=== PATIENT | female | born 1975 | race Caucasian/White ===

== ENCOUNTER 2018-09-08 08:27 | Inpatient (IN) | payer OTHER ==
[2018-09-08] MEDS ORDERED: LIDOCAINE 2% (SDV) 5 ML INJ (09:29)
[2018-09-08] MEDS ORDERED: CEFAZOLIN 1 GM INJ (09:29)
[2018-09-08] MEDS ORDERED: FENTAnyl 50 MCG/ML VIAL ×2 (09:30→11:06)
[2018-09-08] MEDS ORDERED: OXYCODONE/ACETAMINOPHEN (5/325) TAB PO ×2 (09:30)
[2018-09-08] MEDS ORDERED: FAMOTIDINE 20 MG INJ (09:30)
[2018-09-08] MEDS ORDERED: ONDANSETRON 4 MG INJ IV ×2 (09:30→13:30)
[2018-09-08] MEDS ORDERED: PROCHLORPERAZINE 10 MG INJ IV (09:30)
[2018-09-08] MEDS ORDERED: HYDROmorphONE 1 MG/5 ML IV SYRINGE IV ×3 (09:30)
[2018-09-08] MEDS ORDERED: MIDAZOLAM 1 MG/ML 2 ML INJ (09:30)
[2018-09-08] MEDS ORDERED: MEPERIDINE 25 MG INJ IV (09:30)
[2018-09-08] MEDS ORDERED: METOCLOPRAMIDE 10 MG INJ (09:31)
[2018-09-08] MEDS ORDERED: ONDANSETRON 4 MG INJ (09:31)
[2018-09-08] MEDS ORDERED: DEXAMETHASONE 4 MG/ML 5 ML INJ (09:31)
[2018-09-08] MEDS ORDERED: SCOPOLAMINE 1.5 MG PATCH (09:31)
[2018-09-08] MEDS ORDERED: DIPHENHYDRAMINE 50 MG INJ (11:00)
[2018-09-08] MEDS ORDERED: PHENYLephrine (100 MCG/ML) 5ML SYG (11:14)
[2018-09-08] MEDS ORDERED: morphine 2 MG INJ IV (13:30)
[2018-09-08] MEDS: ACETAMINOPHEN 1000MG/100ML IV 100 ML IVPB ×2 (14:05→21:07)
[2018-09-08] MEDS: D5W-0.45 NACL + KCL 20 MEQ 1,000 ML IV ×2 (14:06→22:16)
[2018-09-09] MEDS: D5W-0.45 NACL + KCL 20 MEQ 1,000 ML IV ×3 (06:05→21:16)
[2018-09-09] MEDS ORDERED: HYDROCODONE/APAP (5/325) TAB NGT (10:30)
[2018-09-09 10:48] LABS: ADD MAN DIFF? NO
[2018-09-09 10:51] LABS: BASOPHILS % 0.3 % (0.0-2.0); EOSINOPHILS % 0.2 % (0.0-7.0); HEMATOCRIT 25.8 % (37.0-47.0); HEMOGLOBIN 7.9 g/dl (12.0-16.0); LYMPHOCYTES # 1.9 10^3/ul (0.8-2.9); LYMPHOCYTES % 20.2 % (15.0-51.0); MEAN CORPUSCULAR HEMOGLOBIN 24.4 pg (29.0-33.0); MEAN CORPUSCULAR HGB CONC 30.6 g/dl (32.0-37.0); MEAN CORPUSCULAR VOLUME 79.6 fl (82.0-101.0); MONOCYTE # 0.7 10^3/ul (0.3-0.9); MONOCYTES % 7.9 % (0.0-11.0); NEUTROPHIL # 6.6 10^3/ul (1.6-7.5); NEUTROPHILS % 70.9 % (39.0-77.0); PLATELET COUNT 264 10^3/UL (140-415); RED BLOOD COUNT 3.24 10^6/ul (4.20-5.40); RED CELL DISTRIBUTION WIDTH 15.9 % (11.5-14.5)
[2018-09-09 10:51] LABS: WHITE BLOOD COUNT 9.4 10^3/ul (4.8-10.8)
[2018-09-09 13:22] LABS: ANION GAP 7 (5-13); BLOOD UREA NITROGEN 4 mg/dl (7-20); CALCIUM 8.8 mg/dl (8.4-10.2); CARBON DIOXIDE 26 mmol/L (21-31); CHLORIDE 108 mmol/L (97-110); Estimated GFR > 60 mL/min (>60); GLUCOSE 90 mg/dl (70-220); POTASSIUM 3.8 mmol/L (3.5-5.1); SODIUM 141 mmol/L (135-144)
[2018-09-09] MEDS ORDERED: SOD CHLORIDE 0.9% 250 ML IV* (14:00)
[2018-09-09 20:16] LABS: IMMEDIATE SPIN CROSSMATCH 1 1
== END 2018-09-10 00:10 | disposition home or self-care (01) | DRG 581 ==
LOC: SDS 08:27 → REC 13:26 → MS1 13:55
PROVIDERS: Surgery Surgical Oncology
PROC: 0HBT0ZZ Excision of Right Breast, Open Approach (ICD-10-PCS; principal; 2018-09-08 10:30)
PROC: 07B50ZX Excision of Right Axillary Lymphatic, Open Approach, Diagnostic (ICD-10-PCS; 2018-09-08 10:30)
PROC: 30233N1 Transfusion of Nonautologous Red Blood Cells into Peripheral Vein, Percutaneous Approach (ICD-10-PCS; 2018-09-08 10:32)
DX: C50.911 Malignant neoplasm of unspecified site of right female breast (principal); Z90.11 Acquired absence of right breast and nipple; D50.0 Iron deficiency anemia secondary to blood loss (chronic)
CPT/HCPCS: 36430; 80048; 84703; 85025; 86850; 86900; 86901; 86920; 88307

== ENCOUNTER 2019-03-22 08:17 | Day surgery (SDC) | payer OTHER ==
[2019-03-22] MEDS: SOD CHLORIDE 0.9% 1,000 ML IV (09:02)
[2019-03-22] MEDS ORDERED: GLYCOPYRROLATE 0.4 MG INJ (09:21)
[2019-03-22] MEDS ORDERED: CEFAZOLIN 1 GM INJ (09:21)
[2019-03-22] MEDS ORDERED: FENTAnyl 50 MCG/ML VIAL (09:21)
[2019-03-22] MEDS ORDERED: MIDAZOLAM 1 MG/ML 2 ML INJ (09:21)
[2019-03-22] MEDS ORDERED: NEOSTIGMINE 3 MG/3 ML SYRINGE (09:21)
[2019-03-22] MEDS ORDERED: LIDOCAINE 2% (SDV) 5 ML INJ (09:21)
[2019-03-22] MEDS ORDERED: PROPOFOL 20 ML (09:21)
[2019-03-22] MEDS ORDERED: POLYMYXIN/BACITRACIN 1L IRRIG (10:17)
[2019-03-22] MEDS ORDERED: ONDANSETRON 4 MG INJ (10:23)
[2019-03-22] MEDS ORDERED: DEXAMETHASONE 4 MG/ML 5 ML INJ (10:23)
[2019-03-22] MEDS: BUPIVACAINE 0.25% (MPF) 10 ML 10 ML VIAL INJ (10:43)
[2019-03-22] MEDS: BUPIVACAINE LIPOSOME/PF 266 MG/20 ML VIAL INFIL (10:55)
[2019-03-22] MEDS ORDERED: HYDROmorphONE 1 MG/5 ML IV SYRINGE IV ×3 (11:00)
[2019-03-22] MEDS ORDERED: FENTAnyl 50 MCG/ML VIAL IV ×2 (11:00)
[2019-03-22] MEDS ORDERED: ALBUTEROL 0.083% (NEB) 2.5 MG/3 ML AMP HHN (11:00)
[2019-03-22] MEDS ORDERED: MIDAZOLAM 1 MG/ML 2 ML INJ IV (11:00)
[2019-03-22] MEDS ORDERED: EPHEDrine 25 MG/5 ML SYG IV (11:00)
[2019-03-22] MEDS ORDERED: hydrALAzine 20 MG INJ IV (11:00)
[2019-03-22] MEDS ORDERED: OXYCODONE/ACETAMINOPHEN (5/325) TAB PO ×2 (11:00)
[2019-03-22] MEDS ORDERED: TRIMETHOBENZAMIDE 100 MG/ML VIAL IM (11:00)
[2019-03-22] MEDS ORDERED: LABETALOL HCL 20MG INJ IV (11:00)
[2019-03-22] MEDS ORDERED: IPRATROPIUM (NEB) 0.5 MG/2.5 ML AMP HHN (11:00)
[2019-03-22] MEDS ORDERED: DIPHENHYDRAMINE 50 MG INJ IV (11:00)
[2019-03-22] MEDS ORDERED: ONDANSETRON 4 MG INJ IV (12:00)
[2019-03-22] MEDS ORDERED: HYDROCODONE/APAP (5/325) TAB PO (12:00)
[2019-03-22] MEDS ORDERED: ACETAMINOPHEN 325 MG TAB PO (12:00)
[2019-03-22] MEDS ORDERED: morphine 2 MG INJ IV (12:00)
[2019-03-22] MEDS: ONDANSETRON 4 MG INJ IV (12:02)
[2019-03-22] MEDS: FENTAnyl 50 MCG/ML VIAL IV ×2 (12:02→12:23)
[2019-03-22] MEDS: MEPERIDINE 25 MG INJ IV (12:18)
[2019-03-22] MEDS: LACTATED RINGER'S 1,000 ML IV (12:19)
== END 2019-03-22 19:00 | disposition home or self-care (01) ==
LOC: SDS 08:17
DX: Z90.11 Acquired absence of right breast and nipple (principal); Z85.3 Personal history of malignant neoplasm of breast
CPT/HCPCS: 19357; 84703

== ENCOUNTER 2019-03-30 11:34 | Emergency (ER) | payer OTHER ==
[2019-03-30 12:43] LABS: ADD MAN DIFF? NO
[2019-03-30 12:44] LABS: BASOPHILS % 0.5 % (0.0-2.0); EOSINOPHILS # 0.4 10^3/ul (0.0-0.5); EOSINOPHILS % 4.3 % (0.0-7.0); HEMOGLOBIN 11.2 g/dl (12.0-16.0); LYMPHOCYTES # 1.6 10^3/ul (0.8-2.9); LYMPHOCYTES % 19.1 % (15.0-51.0); MEAN CORPUSCULAR HGB CONC 31.1 g/dl (32.0-37.0); MEAN CORPUSCULAR VOLUME 77.1 fl (82.0-101.0); MONOCYTE # 0.6 10^3/ul (0.3-0.9); NEUTROPHIL # 5.8 10^3/ul (1.6-7.5); NEUTROPHILS % 68.5 % (39.0-77.0); PLATELET COUNT 409 10^3/UL (140-415); RED BLOOD COUNT 4.67 10^6/ul (4.20-5.40); RED CELL DISTRIBUTION WIDTH 16.7 % (11.5-14.5)
[2019-03-30 12:44] LABS: WHITE BLOOD COUNT 8.5 10^3/ul (4.8-10.8)
[2019-03-30 13:05] LABS: ALANINE AMINOTRANSFERASE 46 IU/L (13-69); ALBUMIN 4.2 g/dl (3.3-4.9); ALBUMIN/GLOBULIN RATIO 1.13; ALKALINE PHOSPHATASE 88 IU/L (42-121); ANION GAP 8 (5-13); ASPARTATE AMINO TRANSFERASE 29 IU/L (15-46); BILIRUBIN,INDIRECT 0.3 mg/dl (0-1.1); BILIRUBIN,TOTAL 0.3 mg/dl (0.2-1.3); BLOOD UREA NITROGEN 9 mg/dl (7-20); CALCIUM 9.2 mg/dl (8.4-10.2); CARBON DIOXIDE 30 mmol/L (21-31); CHLORIDE 103 mmol/L (97-110); CREATININE 0.59 mg/dl (0.44-1.00); Estimated GFR > 60 mL/min (>60); GLUCOSE 109 mg/dl (70-220); LIPASE 94 U/L (23-300); POTASSIUM 3.5 mmol/L (3.5-5.1); SODIUM 141 mmol/L (135-144); TOTAL PROTEIN 7.9 g/dl (6.1-8.1)
[2019-03-30 13:07] LABS: CREATINE KINASE 31 IU/L (23-200)
== END 2019-03-30 14:49 | disposition home or self-care (01) ==
LOC: E/R 11:34
DX: M79.605 Pain in left leg (principal); M79.604 Pain in right leg
CPT/HCPCS: 80053; 82550; 83690; 85025; 93970; 99284-25